=== PATIENT | female | born 1940 | race Caucasian/White ===

== ENCOUNTER 2018-06-21 07:04 | Day surgery (SDC) | payer OTHER, MEDICARE ==
[2018-06-16 09:53] VITALS: BMI 29.9
[2018-06-21] MEDS: PHENYLEPHRINE 2.5% OPHTH SOLN 15 ML BOTTLE ONE ×3 (07:35→07:45)
[2018-06-21] MEDS: CIPROFLOXACIN 0.3% EYE DROPS 5 ML BOTTLE ONE ×3 (07:35→07:45)
[2018-06-21] MEDS: TROPICAMIDE 1% OPHTH SOLN 15 ML BOTTLE ONE ×3 (07:35→07:45)
[2018-06-21] MEDS: CYCLOPENTOLATE 2% OPHTH SOLN 2 ML BOTTLE ONE ×3 (07:35→07:45)
[2018-06-21] MEDS ORDERED: MIDAZOLAM HCL 2 MG/2 ML SINGLE DOSE VIAL ONE (08:24)
[2018-06-21] MEDS ORDERED: LIDOCAINE 1% P/F 10 MG/ML VIAL ONE (08:28)
[2018-06-21] MEDS ORDERED: CARBACHOL 0.01% INTRA-OCULAR 1.5 ML VIAL ONE (08:28)
[2018-06-21] MEDS ORDERED: BSS (NA/CA/MG/K) BALANCED SALT SOLUTION OPHTH SOLN 15 ML BOTTLE ONE (08:28)
--- NOTE | 2018-06-21 09:35 | OP ---
DATE OF OPERATION: 06/21/2018 OPERATIVE PROCEDURE: Lens Phacoemulsification with Posterior Chamber Intraocular Lens Placement Left Eye PREOPERATIVE DIAGNOSIS: Visually Significant Cataract of Left Eye POSTOPERATIVE DIAGNOSIS: Visually Significant Cataract of Left Eye SURGEON: Jigar Livingston M.D. ANESTHESIA: MAC ANESTHESIOLOGIST: PROCEDURE: The patient was brought to the operating room and placed under monitored anesthesia care by Anesthesia. A drop of Tetracaine was then placed over the left eye. The patient was then prepped and draped in the usual sterile manner. A speculum was then placed over the left eye. The eye was then well irrigated with copious amounts of BSS (balanced salt solution). The operating microscope was then moved into position. A paracentesis was performed using a 15 degree blade. At this point 0.5 mL of 1% preservative-free lidocaine was injected into the anterior chamber. Amvisc plus was then injected into the anterior chamber. A clear corneal incision was then formed using a 2.2 mm keratome. A capsulorrhexis was then performed in a continuous circular fashion beginning with a cystotome, completed with an Utratas forceps. Hydrodissection was then performed using BSS on a cannula. The phaco probe was then introduced through the corneal wound and the cataract was removed using the phaco chop technique. Approximately 3 seconds of absolute phaco time was used. The remaining cortex was then removed using irrigation and aspiration with an I/A probe. The capsule was then filled with regular Amvisc and the capsule was noted to be intact. A previously selected foldable posterior chamber intraocular lens was then injected into the capsule through the corneal wound using a lens injector. It was then dialed into position using a Sinskey hook. The Amvisc was then removed using irrigation and aspiration. Miostat was then injected through the paracentesis to constrict the pupil. The paracentesis and corneal wound were then hydrated and noted to be water tight. A drop of Maxitrol was then placed over the eye. The speculum was removed and clear shield was taped over the eye. The patient tolerated the procedure well and there were no surgical complications. The patient was asked to follow up in my office the next day. JIGAR LIVINGSTON M.D. [id number]
[2018-06-21 09:49] VITALS: PULSE 84; TEMP 97.8
[2018-06-21 09:53] VITALS: BP 141/75
== END 2018-06-21 09:55 | disposition home or self-care (01) ==
LOC: FASU 07:04
PROVIDERS: ATTEND Ophthalmology
PROC: 08RK3JZ Replacement of Left Lens with Synthetic Substitute, Percutaneous Approach (ICD-10-PCS; principal; 2018-06-21 08:56)
DX: H26.8 Other specified cataract (principal)

== ENCOUNTER 2019-09-11 07:37 | Day surgery (SDC) | payer OTHER, MEDICARE ==
[2019-09-10 15:24] VITALS: BMI 31.8
[2019-09-11 08:22] VITALS: TEMP 98
[2019-09-11 12:48] VITALS: BP 153/77; PULSE 72
--- NOTE | 2019-09-12 14:46 | PATH ---
Surgical Pathology Report Patient Name: FRANCOIS PETER [facility]. Rec. #: [id number] /Age/Gender: 1940 (Age: 79) / F Account: [id number] Location: U-ENDOSCOPY Taken: 09/11/2019 Received: 09/11/2019 Reported: 09/12/2019 Physicians: James Mayer M.D. Specimen(s) Received DISTAL ESOPHAGUS/GE JUNCTION Clinical History GERD Postoperative diagnosis: Esophagitis Final Diagnosis DISTAL ESOPHAGUS/GE JUNCTION, BIOPSY: SQUAMOCOLUMNAR MUCOSA WITH SEVERE CHRONIC INFLAMMATION AND CHANGES OF SEVERE REFLUX ESOPHAGITIS. NO INTESTINAL METAPLASIA OR DYSPLASIA IDENTIFIED. Electronically Signed Sherrie Parisi M.D. Gross Description Received in formalin, labeled "biopsy distal esophagus" are 6 woodard, irregular portions of soft tissue ranging from 0.2-0.6 cm. in greatest dimension. The specimens are submitted in toto in one cassette. 09/11/201909/11/2019
== END 2019-09-11 10:45 | disposition home or self-care (01) ==
LOC: JASU-ENDO 07:37
PROVIDERS: ATTEND Internal Medicine Gastroenterology
PROC: 0DB48ZX Excision of Esophagogastric Junction, Via Natural or Artificial Opening Endoscopic, Diagnostic (ICD-10-PCS; principal; 2019-09-11 09:00)
DX: K21.0 Gastro-esophageal reflux disease with esophagitis (principal)
CPT/HCPCS: 88305-TC

== ENCOUNTER 2021-01-12 10:13 | Day surgery (SDC) | payer OTHER, MEDICARE ==
[2021-01-08 12:21] VITALS: BMI 31.7
[2021-01-12] MEDS ORDERED: PROPOFOL 20 ML ONE ×2 (11:22)
[2021-01-12 12:23] VITALS: TEMP 98.2
[2021-01-12 15:28] VITALS: BP 124/76; PULSE 66
== END 2021-01-12 13:00 | disposition home or self-care (01) ==
LOC: FASU-ENDO 10:13
PROVIDERS: ATTEND Internal Medicine Gastroenterology
PROC: 0DBN8ZX Excision of Sigmoid Colon, Via Natural or Artificial Opening Endoscopic, Diagnostic (ICD-10-PCS; 2021-01-12)
PROC: 0DB98ZX Excision of Duodenum, Via Natural or Artificial Opening Endoscopic, Diagnostic (ICD-10-PCS; 2021-01-12)
PROC: 0DB78ZX Excision of Stomach, Pylorus, Via Natural or Artificial Opening Endoscopic, Diagnostic (ICD-10-PCS; 2021-01-12)
PROC: 0DB38ZX Excision of Lower Esophagus, Via Natural or Artificial Opening Endoscopic, Diagnostic (ICD-10-PCS; 2021-01-12)
PROC: 0DB48ZX Excision of Esophagogastric Junction, Via Natural or Artificial Opening Endoscopic, Diagnostic (ICD-10-PCS; 2021-01-12)
PROC: 0DBK8ZX Excision of Ascending Colon, Via Natural or Artificial Opening Endoscopic, Diagnostic (ICD-10-PCS; principal; 2021-01-12 11:42)
DX: Z12.11 Encounter for screening for malignant neoplasm of colon (principal); D12.2 Benign neoplasm of ascending colon; D12.5 Benign neoplasm of sigmoid colon; K57.30 Diverticulosis of large intestine without perforation or abscess without bleeding; K20.90 Esophagitis, unspecified without bleeding; K29.70 Gastritis, unspecified, without bleeding; Z86.010 Personal history of colon polyps; R12 Heartburn
CPT/HCPCS: 88305-TC; 88342-TC

== ENCOUNTER 2023-08-31 10:02 | Day surgery (SDC) | payer OTHER, MEDICARE ==
[2023-08-30 09:52] VITALS: BMI 31.7
[2023-08-31] MEDS ORDERED: LIDOCAINE 1% P/F 10 MG/ML VIAL ONE (10:08)
[2023-08-31] MEDS ORDERED: BSS (NA/CA/MG/K) BALANCED SALT SOLUTION OPHTH SOLN 15 ML BOTTLE ONE (10:09)
[2023-08-31] MEDS ORDERED: NEO/POLYMYX B SULF/DEXAMETH OPHTHALMIC 5ML BOTTLE ONE (10:09)
[2023-08-31] MEDS ORDERED: CARBACHOL 0.01% INTRA-OCULAR 1.5 ML VIAL ONE (10:09)
[2023-08-31] MEDS: CYCLOPENTOLATE 2% OPHTH SOLN 2 ML BOTTLE ONE ×3 (10:25→10:35)
[2023-08-31] MEDS: CIPROFLOXACIN HCL 0.3% OPHTH 2.5ML BOTTLE ONE ×3 (10:25→10:35)
[2023-08-31] MEDS: PHENYLEPHRINE 2.5% OPTHALMIC DROP 2ML BOTTLE ONE ×3 (10:25→10:35)
[2023-08-31] MEDS: TROPICAMIDE 1% OPHTH SOLN 15 ML BOTTLE ONE ×3 (10:25→10:35)
[2023-08-31] MEDS ORDERED: MIDAZOLAM HCL 2 MG/2 ML SINGLE DOSE VIAL ONE (11:30)
[2023-08-31 12:09] VITALS: TEMP 97.1
[2023-08-31 13:03] VITALS: BP 144/82; RESP 19
[2023-08-31 13:21] VITALS: PULSE 77
== END 2023-08-31 13:21 | disposition home or self-care (01) ==
LOC: FASU 10:02
PROVIDERS: ATTEND Ophthalmology
PROC: 08RJ3JZ Replacement of Right Lens with Synthetic Substitute, Percutaneous Approach (ICD-10-PCS; principal; 2023-08-31 11:34)
DX: H26.8 Other specified cataract (principal)
CPT/HCPCS: 66984; V2632